=== PATIENT | female | born 1960 | race Hispanic/Latino ===

== ENCOUNTER 2017-05-22 11:48 | Outpatient (CLI) | payer BC ==
[2017-05-22 14:47] LABS: #Lymphocytes 1.2 thou/uL (1.20-3.40); #Monocytes 1.6 thou/uL (0.11-0.59); %Basophils 0.1 % (0.0-1.0); %Eosinophils 0.1 % (0.0-10.0); %Lymphocytes 6.9 % (21.0-51.0); %Monocytes 9.3 % (0.0-10.0); %Neutrophils 83.6 % (42.0-75.0); Hemoglobin 14.1 g/dL (12.0-16.0); Mean Corpuscular Hemoglobin 27.5 pg (27.0-31.0); Mean Platelet Volume 9.2 fL (7.4-10.4); Platelet Count 235 thou/uL (130-400); RBC Distribution Width 13.2 % (11.5-14.5); Red Blood Cell (RBC) Count 5.13 mill/uL (4.20-5.40); White Blood Cell (WBC) Count 16.7 thou/uL (4.8-10.8)
[2017-05-22 15:12] LABS: ALT (SGPT) 24 U/L (8-55); AST (SGOT) 16 U/L (5-34); Albumin 4.3 g/dL (3.5-5.0); Alkaline Phosphatase 108 U/L (40-150); Anion Gap 16 mmol/L (10-20); BUN (Urea Nitrogen) 10 mg/dL (9.8-20.1); Bilirubin, Total 1.3 mg/dL (0.2-1.2); Calc. Creatinine Clearance 0 mL/min (70-130); Calcium 9.8 mg/dL (7.8-10.44); Carbon Dioxide 27 mmol/L (22-29); Chloride 99 mmol/L (98-107); Estimated GFR-MDRD 85; Globulin 3.4 g/dL (2.4-3.5); Glucose 104 mg/dL (70-105); Potassium 4.1 mmol/L (3.5-5.1); Protein, Total 7.7 g/dL (6.0-8.3); Sodium 138 mmol/L (136-145)
--- NOTE | 2017-06-15 16:37 | EKG ---
Test Reason : Blood Pressure : / mmHG Vent. Rate : 097 BPM Atrial Rate : 097 BPM P-R Int : 120 ms QRS Dur : 088 ms QT Int : 348 ms P-R-T Axes : 042 060 024 degrees QTc Int : 441 ms Normal sinus rhythm Nonspecific T wave abnormality Abnormal ECG No previous ECGs available Confirmed by DR. Kike HICKS ([id number]) on 06/15/2017 4:36:49 PM Referred By: TOAN Confirmed By:DR. Kike HICKS
== END 2017-05-22 11:49 | disposition home or self-care (01) ==
LOC: LABBT 11:48
PROVIDERS: ATTEND Specialist
DX: Z01.818 Encounter for other preprocedural examination (principal); K81.9 Cholecystitis, unspecified
CPT/HCPCS: 80053; 85025; 93005; 93010

== ENCOUNTER 2017-05-23 07:25 | Day surgery (SDC) | payer BC ==
[2017-05-22 12:26] VITALS: BMI 39.8
--- NOTE | 2017-05-22 18:58 | HP ---
HISTORY OF PRESENT ILLNESS: Payton Smith is a 56-year-old female patient seen today for symptomatic ga llstones. Plan is for laparoscopic cholecystectomy. 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 This was first diagn osed in [facility]. This measured 24 x 20 x 13 cm. It is asymptomatic and plan is to leave alone, but will look at it laparoscopically during the procedure. I saw her on 07/27/2016 at which p oint she was to seek a colonoscopy due to questionable CAT scan findings of her colon. A colonoscopy and upper endoscopy were normal in July 2016 performed at [facility]. Also not ed during past CAT scans was a 2.8 x 5.6 x 16.2 cm complex mass in the liver immediately adjacent to gallbladder with fluid density seen on ultrasound and CAT scan was obtained thought to be benign. Th e possibilities of malignancy were thought possible, but unlikely. Plan is for a laparoscopic cholec ystectomy and evaluation tomorrow. Risks and benefits explained. She consents. MEDICATIONS: Davis 3-6-9 complex, aspirin 81 mg a day, losartan potassium daily. PAST MEDICAL HISTORY: Hypertension, gastroesophageal reflux disease. PAST SURGICAL HISTORY: C-sections. Known pelvic fatty tumor mass seen from left gluteus to sciatic foramen to the pelvis, asymptomatic. PHYSICAL EXAMINATION: VITAL SIGNS: Weight 225 pounds, 66 inches tall, 36 BMI, blood pressure 157/71, heart rate 100, tempe rature 97.9 degrees. LUNGS: Clear to auscultation. CARDIAC: Regular rate and rhythm without murmur or gallop. ABDOMEN: Soft, nontender. No masses, obese. EXTREMITIES: Unremarkable. ASSESSMENT: Symptomatic gallstones. PLAN: 1. Laparoscopic cholecystectomy. Risk of infection, bleeding, visceral and biliary injury explained . She consents. 2. Pelvic mass, chronic, known to be present for more than 15 years from CAT scans in the [place]. Laparoscopically visualized, but will not plan any intervention. 3. Right hepatic lobe, probably benign mass. Evaluate laparoscopically. Consider biochemical marke rs pending laparoscopic findings.
[2017-05-23] MEDS ORDERED: Ketorolac Tromethamine 30 MG/ML VIAL ONE (09:21)
[2017-05-23] MEDS ORDERED: CEFAZOLIN/Water 2 GM/20 ML SYRINGE ONE (09:21)
[2017-05-23] MEDS ORDERED: Bupivacaine/Epinephrine 0.25% 30 ML VIAL ONE (10:30)
[2017-05-23] MEDS ORDERED: Fentanyl 100 MCG/2 ML VIAL ONE (10:34)
[2017-05-23] MEDS ORDERED: Levofloxacin 500 mg/D5W 100 ml Premix Bag ONE (11:28)
--- NOTE | 2017-05-23 12:42 | OP ---
DATE OF PROCEDURE: 05/23/2017 PREOPERATIVE DIAGNOSES: Chronic cholecystitis, cholelithiasis, large fatty tumor present for more th an 20 years left buttocks and the sciatic notch pelvis. POSTOPERATIVE DIAGNOSES: Chronic cholecystitis, cholelithiasis, large fatty tumor present more than 20 years left buttocks and the sciatic notch pelvis. Hydrops of the gallbladder, purulent drainage. PROCEDURE: Laparoscopic video cholecystectomy, 19 gold ROSARIO drain, Jordan in the gallbladder bed, Endo loops cystic duct stump. SURGEON: Dr. Shan Holland FINDINGS: The patient had severe inflammation about the gallbladder. The colon and stomach had infl ammatory adherence, but it peeled off easily. Preoperative CAT scan suggested possible colon involve ment and preoperative colonoscopy was normal. CAT scan suggested a cystic mass adjacent to the gallb ladder and I think this was due to the infection of the gallbladder, liver appeared to be normal. ANESTHESIA: General anesthesia. Local 0.25% Marcaine with epinephrine, 30 mL. DRAINS: A #19 gold ROSARIO drain left in place. PROCEDURE IN DETAIL: The patient was taken to the operating room where under general anesthesia, abd omen was prepared with ChloraPrep, draped in routine fashion. Infraumbilical incision made and pneum operitoneum to 15 mmHg obtained with the Veress needle, replacing it with a 5 port. Video laparoscop e inserted. Right subxiphoid incision made and 11 port placed. Right subcostal incision made mid cl avicular anterior axillary lines and 5 ports placed. Omentum was adherent to the fundus of the gallb ladder. The duodenum, pyloric area of the stomach and colon were also in close proximity and had inf lammatory adhesions. Using careful dissection omentum was freed from the gallbladder fundus. I was able to grasp the gallbladder fundus and as I did it was very friable, it tore and drained purulent h ydrops fluid. Careful dissection freed the duodenum and colon from the gallbladder body. Gallbladde r continued to tear, but I was persistent and able to grasp it and carefully dissect it free the cyst ic duct and artery. Careful dissection revealed the cystic duct which was dissected free and it was too broad for clips, thus, 2 Endoloops were placed. Careful dissection freed the gallbladder which w as placed in the Endobag and submitted to Pathology. Good hemostasis gained with the cautery. Arist a placed. A #19 Gold ROSARIO drain placed in the gallbladder bed. It was secured with 3-0 nylon suture a nd Op-Site and Mastisol. Irrigant and pneumoperitoneum evacuated. Good hemostasis was noted after A rista placed in the liver bed. Good hemostasis assured. As sponge, needle and instrument counts wer e correct, all instruments removed and all skin incisions approximated with interrupted subdermal 4-0 Monocryl and DermaGlue applied.
[2017-05-23] MEDS ORDERED: Acetaminophen 500 MG TAB ONE (13:43)
[2017-05-23] MEDS ORDERED: Lidocaine 1% PF 5 ML VIAL ONE (14:08)
[2017-05-23] MEDS ORDERED: Propofol 200 MG/20 ML VIAL ONE (14:08)
[2017-05-23] MEDS ORDERED: Ondansetron HCl/PF 4 MG/2 ML Vial ONE (14:08)
[2017-05-23] MEDS ORDERED: Dexamethasone 20 MG/5 ML VIAL ONE (14:08)
[2017-05-23] MEDS ORDERED: Glycopyrrolate 0.2 MG/ML 5 ML SYRINGE ONE (14:09)
== END 2017-05-23 14:00 | disposition home or self-care (01) ==
LOC: SDC 07:25
PROVIDERS: ATTEND Specialist
PROC: 0FT44ZZ Resection of Gallbladder, Percutaneous Endoscopic Approach (ICD-10-PCS; principal; 2017-05-23)
DX: K80.11 Calculus of gallbladder with chronic cholecystitis with obstruction (principal); D17.1 Benign lipomatous neoplasm of skin and subcutaneous tissue of trunk; K82.1 Hydrops of gallbladder; I10 Essential (primary) hypertension; K21.9 Gastro-esophageal reflux disease without esophagitis; Z79.82 Long term (current) use of aspirin; Z79.899 Other long term (current) drug therapy; Z98.890 Other specified postprocedural states
CPT/HCPCS: 88304; J0131; J1100; J1885; J1956; J2001; J2405; J2704; J3010

== ENCOUNTER 2017-10-26 08:12 | Outpatient (CLI) | payer BC | END 2017-10-26 08:13 | disposition home or self-care (01) | LOC: BICMAMMO 08:12 | PROVIDERS: ATTEND Physician Assistant | DX: Z12.31 Encounter for screening mammogram for malignant neoplasm of breast (principal) | CPT/HCPCS: 77063; 77067 ==

== ENCOUNTER 2018-08-26 08:29 | Outpatient (CLI) | payer BC ==
--- NOTE | 2018-08-26 09:13 | ULT ---
US Gallbladder RUQ: 08/26/2018 12:00 AM CLINICAL HISTORY: Intermittent abdominal pain for 2 months. STUDY: Limited right upper quadrant ultrasound of abdomen. COMPARISON: None. FINDINGS: Liver: Size: Normal. Echogenicity: Normal. Contour: Smooth. Mass: None. A small amount of ascites is seen adjacent to the liver. Bile ducts: No intrahepatic or extrahepatic biliary dilatation. Common bile duct measures 5 mm. Gallbladder: Removed Pancreas: Head, body, and tail appear normal. Right kidney: No pelvicalyceal dilatation. Right kidney measuring 10.6 cm in length. IMPRESSION: Mild ascites; otherwise unremarkable exam
== END 2018-08-26 08:30 | disposition home or self-care (01) ==
LOC: ULT 08:29
PROVIDERS: ATTEND Physician Assistant
DX: R10.11 Right upper quadrant pain (principal); R18.8 Other ascites
CPT/HCPCS: 76705

== ENCOUNTER 2018-09-11 08:11 | Outpatient (CLI) | payer BC ==
--- NOTE | 2018-09-11 10:17 | CT ---
CT ABDOMEN AND PELVIS WITH IV CONTRAST: Date: 09/11/18 HISTORY: Right upper quadrant pain and ascites. FINDINGS: Comparison made with exam of 07/26/16. The lung bases are unremarkable. There is a small amount of free fluid in the abdomen and pelvis, con sistent with mild ascites. There is soft tissue nodularity in the omentum of the left hemiabdomen jessica picious for omental/peritoneal metastasis. No free air is seen in the abdomen or pelvis. The patient is post cholecystectomy. The 15 mm peripherally calcified splenic artery aneurysm is stable. There is no evidence of aneurysmal dilatation of the abdominal aorta. The complex cystic mass noted in the liver on the previous study has resolved in the interim. No hepa tic mass is noted on the current exam. The spleen, pancreas, adrenal glands, and kidneys are normal. No lymphadenopathy is identified. Uterus is present with a small, 1.0 cm, low density lesion, which may represent a fibroid. There is a 3.5 cm complex cystic mass in the left adnexa, and a 1.8 cm cystic mass in the right adnexa. There i s a tiny calcific density in the cystic area in the right adnexa. It cannot be said with certainty if this is due to an adnexal mass or contained acute appendicitis. Due to the absence of oral contrast, bowel contents, including the appendix, cannot be satisfactorily evaluated on this study. The large fat-containing mass involving the left gluteal musculature and extending into the pelvis fa tty foramen is unchanged. A few scattered punctate calcifications within the mass and a few tiny line ar septations are redemonstrated. This is most likely a lipoma. IMPRESSION: 1. Ascites. 2. Complex 3.5 cm left adnexal mass, likely ovarian. 3. 1.8 cm cystic mass in the right adnexal region may either be due to an ovarian pathology or a seq uelae of acute appendicitis. Clinical, surgical, and gynecologic consultation is recommended. 4. Probable omental metastases. Discussed over the telephone with Uma Khoury NP, at 0937 hours. CODE CR. POS: TPC
[2018-09-11] MEDS ORDERED: ISOVUE-370 76%-LOCM 1 ML ONE (14:37)
== END 2018-09-11 08:12 | disposition home or self-care (01) ==
LOC: BICCT 08:11
PROVIDERS: ATTEND Physician Assistant
DX: R18.8 Other ascites (principal); N85.8 Other specified noninflammatory disorders of uterus
CPT/HCPCS: 36415; 74177; 80053; 82565; 85025; 86301; 86304; Q9966

== ENCOUNTER 2018-09-26 13:00 | Outpatient (CLI) | payer BC ==
--- NOTE | 2018-09-26 14:27 | MRI ---
EXAM: MRI of the abdomen without and with contrast COMPARISON: CT abdomen/pelvis 09/11/2018 HISTORY: Pancreatic cancer TECHNIQUE: Multiplanar multi sequence MR images were taken of the abdomen without and with IV contras t. An MRCP was performed. FINDINGS: This exam is limited secondary to motion artifact. Liver: No focal liver lesions. There is moderate intrahepatic ductal dilatation. Normal signal withou t dropout on out of phase images. Gallbladder: Removed Common bile duct: Normal caliber without filling defects. The intrahepatic ductal dilatation mentione d above abruptly tapers to normal caliber in the region of the cain hepatis. No obvious enhancing mass is seen in this region but evaluation is slightly limited secondary to artifact from multiple nolen rgical clips. Adrenal glands: Unremarkable. Kidneys: No hydronephrosis or focal renal lesions. Spleen: Unremarkable. Pancreas: Unremarkable. Retroperitoneum: No enlarged lymph nodes Bones: No marrow signal abnormality. The abnormal appearance of the mesentery seen on CT cannot be appreciated on this examination as ther e is significant motion of the bowel. IMPRESSION: 1. Intrahepatic ductal dilatation abruptly tapers in the cain hepatis without obvious mass identifie d. 2. The findings on CT concerning for omental caking cannot be appreciated on this exam likely seconda ry to motion.
== END 2018-09-26 13:01 | disposition home or self-care (01) ==
LOC: MRI 13:00
PROVIDERS: ATTEND Internal Medicine Hematology & Oncology
DX: C25.9 Malignant neoplasm of pancreas, unspecified (principal)
CPT/HCPCS: 74183

== ENCOUNTER 2018-09-27 08:18 | Outpatient (CLI) | payer BC ==
--- NOTE | 2018-09-27 14:40 | PET ---
PET CT: HISTORY: Pancreatic cancer for initial staging. TECHNIQUE: PET scanning with CT attenuation correction was performed from the base of the brain through the prox imal thighs following the intravenous administration of 12.3 mCi of [id number]. Biopsy w as performed on 09/20/2018. COMPARISON: None. CORRELATION: CT abdomen and pelvis of 09/11/2018 and MRI abdomen of 09/26/2018. FINDINGS: No shira hypermetabolism is seen in the neck, chest, abdomen, or pelvis. No hypermetabolic pulmonary nodules, liver, adrenal, or skeletal lesions are seen. There is increased FDG localization in the peritoneal/omental masses with a maximum SUV of 7.5. The right-sided pelvic mass noted on the CT scan demonstrates increased FDG localization with an SUV of 1 1. No abnormal FDG localization is seen in the left pelvic mass. There is physiologic activity in the GI and tracks and the visualized portions of the brain. The CT scan used for attenuation correction demonstrates mild ascites. No pleural or pericardial eff usions are seen. No abnormal FDG localization is seen in the pancreas. IMPRESSION: 1. Peritoneal carcinomatosis. 2. Hypermetabolic right pelvic mass, suspicious for malignancy. POS: WERO
== END 2018-09-27 08:19 | disposition home or self-care (01) ==
LOC: PET 08:18
PROVIDERS: ATTEND Internal Medicine Hematology & Oncology
DX: C25.9 Malignant neoplasm of pancreas, unspecified (principal); C78.6 Secondary malignant neoplasm of retroperitoneum and peritoneum; R19.00 Intra-abdominal and pelvic swelling, mass and lump, unspecified site
CPT/HCPCS: 78815; 80053; A9552

== ENCOUNTER 2018-10-02 06:05 | Day surgery (SDC) | payer BC ==
[2018-10-01 16:47] VITALS: BMI 30.9
[2018-10-02] MEDS ORDERED: Fentanyl 100 MCG/2 ML VIAL ONE (06:50)
[2018-10-02] MEDS ORDERED: Midazolam HCl 2 mg/2 ml Vial ONE (06:50)
[2018-10-02] MEDS ORDERED: Bupivacaine HCl 0.5%/Epinephrine 1:200,000/PF 30 ml Vial ONE (06:53)
[2018-10-02] MEDS ORDERED: Lidocaine 2% PF 5 ML VIAL ONE (06:53)
[2018-10-02] MEDS ORDERED: Propofol 1,000 MG/100 ML VIAL IV ONE (06:55)
--- NOTE | 2018-10-02 08:14 | RAD ---
EXAM: CHEST ONE VIEW HISTORY: Post Mediport placement. COMPARISON: None FINDINGS: A right subclavian Mediport catheter is noted in place. However, there is significant flattening of t he Mediport catheter at the junction of the anterior first rib and the clavicle. The tip of the Mediport catheter overlies the distal SVC. No pneumothorax is seen. The cardiac silhouette and pulmonary vasculature are within normal limits The lungs are clear. The os seous structures are intact. IMPRESSION: 1.] Right subclavian Mediport catheter noted in place without evidence of pneumothorax. There is sign ificant flattening involving the Mediport catheter at the junction of the anterior first rib and clavicle. 2. Findings were discussed with Dr. Holland on 10/02/2018 at 0811 hours.
--- NOTE | 2018-10-02 12:13 | HP ---
HISTORY OF PRESENT ILLNESS: Payton Smith is a 58-year-old female, who in 2018 I performed a laparoscopic cholecystectomy. She now presents with metastatic pancreatic cancer and jaundice. She has been seen by Uma Khoury PA-C, referred to Dr. Maurilio Lobo, Dr. Vasquez, and Dr. Danica Garland. The patient is awaiting a call from Dr. Hickey in [place] for placement of biliary stent to relieve her jaundice and biliary obstruction. I have been asked to see her by Dr. Vasquez regarding MediPort placement. PAST SURGICAL HISTORY: and repeat in 1984 and 1989, laparoscopic cholecystectomy in May 2017, and recent laparoscopy by Dr. Danica Garland for biopsy of ovarian mass, consider pancreatic metastatic cancer. On 08/26/2018, ultrasound revealed mild ascites, bile ducts normal, pancreas normal, and right kidney normal. CAT scan of the abdomen and pelvis on 09/11/2018 revealed absence of hepatic lesions. A previous seen liver mass in 07/2016 had resolved. Ascites and omental thickening were noted. A 3.5 cm complex left ovarian mass and a 1.8 cm right ovarian cystic lesion. No oral contrast was used. Thin lipoma in left gluteus. Bilirubin was 3.8 on 08/16/2018. Recent laparoscopy by Dr. Danica Garland, pancreas seen to be normal on 08/26/2018. She has a large fat containing mass in the left gluteal and muscle reside into the pelvis foramen. Unchanged from previous studies and noted in prior study in [place]. PHYSICAL EXAMINATION: VITAL SIGNS: Weight 191 pounds, height 66 inches, BMI 30, blood pressure 96/54, heart rate 100, and temperature 97.7 degrees. SKIN: Jaundiced. EYES: Sclerae are icteric. LUNGS: Clear to auscultation. CARDIAC: Regular rate and rhythm. No murmur or gallop. ABDOMEN: Soft and nontender. Well-healed laparoscopy scar, supraumbilical. EXTREMITIES: Unremarkable. ASSESSMENT AND PLAN: Metastatic cancer, suspect pancreatic although ovarian mass was noted. She is status post laparoscopy by Dr. Danica Garland. Plan MediPort placement. She is awaiting Dr. Hickey's visit for biliary stenting. She has seen Dr. Maurilio Lobo. She understands the risks and benefits of MediPort placement and consents. Questions answered. Job ID: [id number]
--- NOTE | 2018-10-02 14:38 | OP ---
DATE OF PROCEDURE: 10/02/2018 PREOPERATIVE DIAGNOSES: Metastatic pancreatic cancer, obstructive jaundice, and needle antineoplastic chemotherapy access. POSTOPERATIVE DIAGNOSES: Metastatic pancreatic cancer, obstructive jaundice, and needle antineoplastic chemotherapy access. PROCEDURE PERFORMED: Right subclavian vein MediPort, low-profile PowerPort. ANESTHESIA: Intravenous sedation, local 0.5% Marcaine with epinephrine 30 mL mixed with 2% Xylocaine 10 mL. FLUOROSCOPY USED: Less than 15 seconds. DESCRIPTION OF PROCEDURE: The patient was taken to the operating room, where under intravenous sedation, neck and chest were prepped with ChloraPrep, draped in routine fashion. Local anesthetic mixture was infiltrated into the skin and subcutaneous tissue about the operative site. An infraclavicular approach was used for the right subclavian vein access with a trocar catheter, J-wire threaded, trocar catheter removed. Skin site was incised sharply, carried down through skin and subcutaneous tissue creating a pocket for the MediPort. Dilator and Peel-Away sheath were placed over the J-wire in the superior vena cava, and dilator and J-wire were removed. Catheter was placed through the Peel-Away sheath. Peel-Away sheath was removed. Fluoroscopically, the catheter tip was placed in optimal position, and catheter was tailored to length and connected to the MediPort. MediPort was placed in the subcutaneous pocket and secured with 2 interrupted sutures of 3-0 Prolene. Subcutaneous tissue was approximated with 3-0 Monocryl, skin with subdermal 4-0 Monocryl, and [place] glue applied. Final fluoroscopic images revealed good line placement. The patient tolerated the procedure well. Dermabond applied. Merrill needle accessed the MediPort, obtained good return of venous blood and heparinized saline solution flushed the catheter and port. Job ID: [id number]
[2018-10-02] MEDS ORDERED: PROPOFOL 200 MG/20 ML VIAL ONE (15:49)
[2018-10-02] MEDS ORDERED: ePHEDrine 50 MG/ML VIAL ONE (15:49)
[2018-10-02] MEDS ORDERED: PHENYLEPHRINE-NS 100 MCG/ML 10 ML SYRINGE ONE (15:49)
== END 2018-10-02 09:20 | disposition home or self-care (01) ==
LOC: SDC 06:05
PROVIDERS: ATTEND Specialist
PROC: 0JH63WZ Insertion of Totally Implantable Vascular Access Device into Chest Subcutaneous Tissue and Fascia, Percutaneous Approach (ICD-10-PCS; principal; 2018-10-02)
DX: C78.89 Secondary malignant neoplasm of other digestive organs (principal); K83.1 Obstruction of bile duct; C80.1 Malignant (primary) neoplasm, unspecified; I10 Essential (primary) hypertension; K21.9 Gastro-esophageal reflux disease without esophagitis; Z79.899 Other long term (current) drug therapy
CPT/HCPCS: 71045; C1788; J0670; J0690; J1642; J2001; J2250; J2704; J3010; J3490

== ENCOUNTER 2018-11-11 13:19 | Inpatient (IN) | payer BC ==
[2018-11-11 14:05] LABS: Hemoglobin 10.7 g/dL (12.0-16.0); Mean Corpuscular HGB CONC 32.4 g/dL (32.0-36.0); Mean Corpuscular Volume 92.7 fL (78.0-98.0); Mean Platelet Volume 8.6 fL (7.4-10.4); Platelet Count 308 thou/uL (130-400); RBC Distribution Width 15.6 % (11.5-14.5); Red Blood Cell (RBC) Count 3.57 mill/uL (4.20-5.40); White Blood Cell (WBC) Count 22.2 thou/uL (4.8-10.8)
[2018-11-11 14:23] LABS: Anisocytosis SLIGHT = 6-15 cells (100X) (0-5/hpf); Band 2 % (5-11); Basophilic Stippling SLIGHT = 1-2 cells (100X) (None Seen); Eosinophils 1 % (0-10); Lymphocytes 8 % (21-51); MDiff Complete? YES; Monocytes 3 % (0-10); Neutrophil 86 % (42-75); Platelet Morphology Comment Appears Adequate; Polychromasia MODERATE = 3-4 cells (100X) (0-2/hpf); Spherocytes SLIGHT = 1-5 cells (100X) (None Seen)
[2018-11-11 14:27] LABS: ALT (SGPT) 49 U/L (8-55); AST (SGOT) 36 U/L (5-34); Albumin 4.1 g/dL (3.5-5.0); Alkaline Phosphatase 263 U/L (40-150); Anion Gap 20 mmol/L (10-20); BUN (Urea Nitrogen) 54 mg/dL (9.8-20.1); Bilirubin, Total 2.9 mg/dL (0.2-1.2); Calc. Creatinine Clearance 0 mL/min (70-130); Calcium 10.3 mg/dL (7.8-10.44); Carbon Dioxide 28 mmol/L (22-29); Chloride 86 mmol/L (98-107); Estimated GFR-MDRD 16; Globulin 4.5 g/dL (2.4-3.5); Glucose 184 mg/dL (70-105); Protein, Total 8.6 g/dL (6.0-8.3); Sodium 130 mmol/L (136-145)
--- NOTE | 2018-11-11 14:40 | RAD ---
FRONTAL VIEW CHEST: Date: 11/11/18 COMPARISON: 10/02/18. INDICATION: Hypertension, dialysis patient with history of pancreatic cancer reported. FINDINGS: Right-sided Port-A-Cath is again seen. There has been interval placement of a left side tunnel vascul ar catheter. No lobar consolidation, effusion, or discrete pneumothorax. Cardiomediastinal silhouette is stable in size. IMPRESSION: No focal consolidation. POS: SILK
[2018-11-11] MEDS ORDERED: Acetaminophen 325 MG TAB PO PRN (18:50)
[2018-11-11] MEDS ORDERED: Ondansetron PF 4 MG/2 ML Vial IVP PRN (19:31)
[2018-11-11] MEDS: Sodium Chloride 0.9% 1,000 ML IV SCH (23:15)
[2018-11-11] MEDS: Famotidine/PF 20 mg/2ml Vial SLOW IVP SCH (23:16)
[2018-11-11] MEDS: Meropenem 500 MG in Sodium Chloride 0.9% 100 ML IVPB SCH (23:17)
[2018-11-11] MEDS: Heparin 5,000 UNITS/ML VIAL SC SCH (23:17)
[2018-11-12 00:04] VITALS: BMI 25.9
[2018-11-12] MEDS ORDERED: HYDROcodone/Acetaminophen 5/325 mg Tablet PO PRN (01:31)
--- NOTE | 2018-11-12 01:44 | HP ---
CHIEF COMPLAINT: Presyncope. HISTORY OF PRESENT ILLNESS: The patient is a 58-year-old female with a history of hypertension, who presents to the hospital with near syncopal episode x1. Patient's history is mostly obtained from family, especially her who is at the bedside. The patient's states that she recently got diagnosed with pancreatic cancer with significant metastatic lesions all the way up to her ovaries. Initially, she was found to have lesions on her ovaries, went to a doctor in [place], Dr. Garland, who stated that most likely this is not ovarian in origin. The patient also at that time had significant jaundice and at this time, she was found to have pancreatic cancer. The patient's family stated that the patient also had seen Dr. Vasquez and also Dr. Lobo for GI issues. Apparently, due to the patient's elevated bilirubin, she underwent a procedure, I am guessing it is most likely MRCP with Dr. Lobo. Apparently, there was supposed to be stenting, however, the family stated that due to the complication of her anatomy and also complications of the patient's underlying disease, she was referred to Dr. Hickey in [place] for placing a biliary stent for the biliary obstruction and jaundice. However, when she got there to get her stent in, she was found to be very hypotensive and at that time, she was transferred to [facility] for further evaluation. The patient and daughter stated that the patient at that time was found to have an upper GI bleed and underwent an EGD. The patient at this time was put on a PPI. However, when she was getting hemodynamically stable, her creatinine started to worsen. The patient then ended up on dialysis. The patient was in the ICU for about 4 days according to the family. The patient then was discharged home. She came home on October 24. The patient's family states that since her discharge from [facility] she has been doing well. She is not eating very much, however, has been in good spirits and has been getting up with assistance to do minimal activities. However, on Sunday, she was started on a new medication which is nifedipine and after taking her medications on Sunday, , Sunday, and Sunday she has been having worsening generalized weakness, lightheadedness, dizziness, and nauseated. Family noticed that the patient is now not even able to stand on her own, which she was able to do before with some assistance or even get out of bed. She denies any fevers, however, gets cold very often. Denies any diarrhea. Has been having bowel movements. Currently is not nauseated. However, she has not been eating very much per family. In the ER, she did have orthostatics which was significantly positive. Her systolic dropped from 165 lying down, to 130 sitting up, to 111 standing up, and also she had reflex tachycardia. She also dropped her oxygen saturations down and almost had a syncopal episode while she was standing. PAST MEDICAL HISTORY: She has a history of hypertension. PAST SURGICAL HISTORY: She has had a cholecystectomy and a . REVIEW OF SYSTEMS: All negative except for the ones mentioned above in the HPI. ALLERGIES: SHE HAS NO KNOWN DRUG ALLERGIES. MEDICATIONS: She takes; 1. Nifedipine 30 mg daily. 2. Protonix 40 mg b.i.d. 3. Megestrol daily. FAMILY HISTORY: History of heart disease and strokes. SOCIAL HISTORY: She denies any alcohol use, drug use, or smoking history. She is a full code. Lives with her family. LABORATORY RESULTS: As of the following; WBC 22.2, hemoglobin of 10.7, hematocrit of 33.1, platelets of 308. Her chemistry shows a sodium of 130, potassium of 4.0, BUN of 54, creatinine of 2.93. Her bilirubin is 2.9. Her AST is 36, ALT is 49, alkaline phosphatase is 263. She did have a chest x-ray which did not indicate any acute abnormalities. ASSESSMENT AND PLAN: The patient is a very pleasant 58-year-old female who presents to the hospital with complaints of generalized weakness. 1. Presyncope , most likely secondary to possible dehydration. Her orthostatics were definitely positive. At this time, I would not treat her hypertension while she is lying down since this most likely is attributing to her symptoms. What I believe as happening is when her blood pressure is high lying down, when she takes her medications and when she gets up, she is becoming hypotensive, therefore symptomatic. She also has not been eating or drinking very much per family. I will hold off on any of the blood pressure medications at this time and I will also check an echocardiogram on her. She also became significantly hypoxic. Her H and H are stable at 10. However, this could be mild dehydration related and maybe once we hydrate her, she might drop her H and H and requiring a blood transfusion, which could explain her shortness of breath and her hypoxia. However, she has a pancreatic cancer which predisposes her to having prone to deep venous thrombosis and pulmonary embolism. Given in the light of a recent upper gastrointestinal bleed, I did discuss this with the family that if she even had pulmonary embolism or deep venous thrombosis, the only other option would be an IVC filter. I will check lower extremity venous Dopplers. I will hold off on any V/Q scanning. I will discuss this with the suede brusher since we will be unable to do a CTA given her kidneys, which are just now recovering from most likely secondary to prerenal or acute tubular necrosis. Most likely, I would do a V/Q scan on her probably tomorrow. 2. Leukocytosis. I believe this is possibly reactive. However, given her generalized weakness, this could be an underlying infectious etiology. I will check a UA on her and I will get some records from [facility] since her family did state that she did have leukocytosis at [facility] also. I will also order blood cultures and her chest x-ray has been negative. 3. Acute kidney injury, new diagnosis. She had some intermittent dialysis. I will consult Nephrology. Her creatinine again is 2.93. Again, I do not know what her baseline creatinine at [facility] was; however, I will definitely get records from there. 4. Malnutrition. I believe this patient has moderate calorie malnutrition. I will continue her megestrol also I will put on a regular diet, even though she is a renal patient and has hypertension. The patient is not eating very much. I need her to eat. So, I will put her on a regular diet and I will add some Nepro or some MightyShakes if she is able to tolerate them. 5. Deep venous thrombosis prophylaxis. I will put the patient on heparin subcu. Job ID: [id number]
[2018-11-12] MEDS: HYDROcodone/Acetaminophen 5/325 mg Tablet PO PRN ×3 (01:57→18:59)
[2018-11-12 05:22] LABS: #Eosinphils 0.1 thou/uL (0.0-0.7); #Lymphocytes 1.3 thou/uL (1.20-3.40); #Monocytes 1.1 thou/uL (0.11-0.59); #Neutrophils 12.7 thou/uL (1.40-6.50); %Basophils 0.1 % (0.0-1.0); %Eosinophils 0.8 % (0.0-10.0); %Lymphocytes 8.6 % (21.0-51.0); %Monocytes 7.5 % (0.0-10.0); %Neutrophils 83.1 % (42.0-75.0); Hemoglobin 9.5 g/dL (12.0-16.0); Mean Corpuscular HGB CONC 32.3 g/dL (32.0-36.0); Mean Platelet Volume 8.7 fL (7.4-10.4); Platelet Count 248 thou/uL (130-400); RBC Distribution Width 15.4 % (11.5-14.5); Red Blood Cell (RBC) Count 3.17 mill/uL (4.20-5.40); White Blood Cell (WBC) Count 15.2 thou/uL (4.8-10.8)
[2018-11-12 05:38] LABS: ALT (SGPT) 37 U/L (8-55); AST (SGOT) 25 U/L (5-34); Albumin 3.6 g/dL (3.5-5.0); Alkaline Phosphatase 198 U/L (40-150); Anion Gap 20 mmol/L (10-20); BUN (Urea Nitrogen) 55 mg/dL (9.8-20.1); Bilirubin, Total 2.3 mg/dL (0.2-1.2); Calc. Creatinine Clearance 25 mL/min (70-130); Calcium 9.4 mg/dL (7.8-10.44); Carbon Dioxide 27 mmol/L (22-29); Chloride 91 mmol/L (98-107); Estimated GFR-MDRD 18; Globulin 3.7 g/dL (2.4-3.5); Glucose 149 mg/dL (70-105); Potassium 3.7 mmol/L (3.5-5.1); Protein, Total 7.3 g/dL (6.0-8.3); Sodium 134 mmol/L (136-145)
[2018-11-12 05:52] LABS: Bilirubin Small (Negative); Blood, Urine Negative (Negative); Clarity CLOUDY (Clear); Glucose, Urine (Dipstick) Negative (Negative); Leukocyte Moderate (Negative); Nitrite Negative (Negative); Protein, Urine (Dipstick) 100 mg/dL (Neg-Trace); Urobilinogen 0.2 mg/dL (0.2-1.0)
[2018-11-12 05:55] LABS: Bacteria/HPF None Seen HPF (None Seen); Pathc Cast-AUWi Flag 1.22 (0-2.49); Squamous Epithelial 0-3 HPF (0-3); WBC/HPF 21-50 HPF (0-3)
[2018-11-12 05:57] LABS: Yeast-AUWi Flag 105.8 (0-25.0)
[2018-11-12 06:05] LABS: Hyaline Casts/LPF 0-3 HYALINE CAST LPF (0-3 Hyaline); RBC/HPF 0-3 HPF (0-3); Trichomonas/HPF None Seen HPF (None Seen); Yeast-All Forms None Seen HPF (None Seen)
[2018-11-12 06:06] LABS: Urine Culture Reflex Yes Yes
--- NOTE | 2018-11-12 08:00 | ULT ---
ULTRASOUND DOPPLER DUPLEX VENOUS BILATERAL LOWER EXTREMITIES: DATE: 11/12/2018 HISTORY: Lower extremity edema bilateral TECHNIQUE: Grayscale, color-flow, and spectral analysis, of major veins of bilateral lower extremities. FINDINGS: There is demonstration of blood flow with normal compressibility, of the bilateral common femoral, pr ofunda femoral, greater saphenous, femoral, popliteal, and posterior tibial, veins. IMPRESSION: Negative. No deep venous thrombosis of bilateral lower extremities.
[2018-11-12] MEDS ORDERED: Prevnar 13-Val Conj/PF 0.5 ML SYRINGE IM ONE (09:00)
[2018-11-12] MEDS: Heparin 5,000 UNITS/ML VIAL SC SCH ×3 (09:19→21:30)
--- NOTE | 2018-11-12 10:29 | CON ---
DATE OF CONSULTATION: HISTORY OF PRESENT ILLNESS: Ms. Smith is a 58-year-old female, who was admitted for near syncopal episode. The patient's blood pressure in supine position has been running in the 170s. She was started nifedipine recently. According to the patient, she was started with that, she has been feeling dizzy. On checking her blood pressure - standing was showing that she is orthostatic. For that reason, nifedipine will be stopped temporarily. This patient also has recent diagnosis of pancreatic/ovarian carcinoma with metastasis. She is being followed up by her termite technician. She also developed prolonged acute renal failure secondary to acute tubular necrosis. I do not see any evidence per se of complete renal recovery. We will continue current maintenance hemodialysis. We are following her up for her dialysis sessions. This morning, she is feeling better. REVIEW OF SYSTEMS: No chest pain or shortness of breath. Positive for near syncopal episode. No nausea. No vomiting. Decreased appetite. Decreased energy level. Positive for abdominal fullness. No leg edema. No gross hematuria. No dysuria. No urinary frequency. No productive cough. No fever or chills. No headache. MEDICATIONS: Home medications included; 1. Nifedipine 30 mg once a day. 2. Protonix 40 mg tablet once a day. 3. Multivitamin daily. 4. Megace 400 mg daily. 5. one tablet q.6 p.r.n. Hospital medications include; 1. Meropenem 500 mg IV b.i.d. 2. Protonix 40 mg tablet p.o. b.i.d. 3. Heparin 5000 units subcu t.i.d. PAST MEDICAL HISTORY: History of pancreatic cancer history of jaundice, hypertension, status post GI bleed. PAST SURGICAL HISTORY: Status post upper GI endoscopy, status post exploratory laparotomy, status post section, status post biopsy of ovarian mass, status post bilateral stent placement, status post MediPort placement, status post tunneled dialysis catheter placement. SOCIAL HISTORY: The patient is , 2 children. Used to work at the [employer]. Lives in [place]. No smoking. No alcohol intake. No IV drug abuse. Status post blood transfusion. Education, high school. ALLERGIES: NO KNOWN DRUG ALLERGIES. TRAUMA: None. IMMUNIZATION: Up-to-date. HOSPITALIZATIONS: Please see past medical history. FAMILY HISTORY: No family history of ESRD. PHYSICAL EXAMINATION: VITAL SIGNS: Blood pressure 168/81, heart rate 86, respiratory rate 18, temperature 98.2, pulse ox 100%. GENERAL: Noted to be awake, comfortable, not in overt distress. SKIN: Adequate turgor. HEENT: Pinkish conjunctivae. Anicteric sclerae. NECK: No neck mass. No carotid bruits. No JVD. CHEST: No deformities. LUNGS: Clear breath sounds. HEART: Normal sinus rhythm. No murmur. No gallops or rubs. ABDOMEN: Globular, soft, nontender. No masses. EXTREMITIES: No edema. No deformities. NEUROLOGIC: Awake, oriented to 3 spheres. Moving all extremities. No tremors or asterixis. No ataxia. LABORATORY DATA: Laboratories of November 12, 2018; sodium 134, potassium 3.7, chloride 91, carbon dioxide 27, BUN 55, creatinine 2.76, GFR 18 mL/minute, glucose 149, calcium 9.4, AST 25, ALT 37, albumin is 3.6. On November 11, 2018; BUN 54, creatinine 2.93. White count 15.2, hemoglobin 9.5. IMAGING STUDIES: Chest x-ray of November 11, 2018, no CHF. ASSESSMENT AND PLAN: 1. Acute kidney injury - prolonged ATN. No evidence of renal recovery. However, we will monitor renal function daily to see if I could get her off dialysis. Her GFR is still significantly impaired. She is not in volume overload. For this reason, we will not be doing any emergent dialysis with her today. I have rescheduled her for regular Sunday, Sunday, and Sunday hemodialysis. 2. Near syncopal episode. Agree to hold off blood pressure medication. 3. Overall prognosis remains guarded. Oncology is following up for her pancreatic tumor. Job ID: [id number]
[2018-11-12] MEDS: Meropenem 500 MG in Sodium Chloride 0.9% 100 ML IVPB SCH ×2 (11:08→21:29)
--- NOTE | 2018-11-12 16:36 | PDOC.PN ---
- Subjective Encounter Start Date: 11/12/18 Encounter Start Time: 10:15 Subjective: pt up in bed feels much better - Objective Resuscitation Status - Order Detail: 11/11/18 18:50 Resuscitation Status Routine Resuscitation Status: FULL: Full Resuscitation Vital Signs & Weight: Vital Signs (12 hours) Temp Pulse Resp BP Pulse Ox 11/12/18 16:00 97.8 F 93 19 158/79 H 100 11/12/18 11:10 98.3 F 96 18 165/80 H 100 11/12/18 07:18 98.2 F 86 18 168/81 H 100 Weight Admit Weight 160 lb 12.8 oz Weight 160 lb 12.8 oz I&O: 11/11/18 11/12/18 11/13/18 06:59 06:59 06:59 Intake Total 240 Output Total 300 Balance -60 Result Diagrams: 11/12/18 04:43 11/12/18 04:43 Phys Exam - Physical Examination Neck: no nodes, no JVD, supple, full ROM Respiratory: no wheezing, no rales, no rhonchi, wheezing present, clear to auscultation bilateral Cardiovascular: RRR, no significant murmur, no rub, gallop, irregular Gastrointestinal: soft, non-tender, no distention, positive bowel sounds Dx/Plan (1) Pre-syncope Status: Acute (2) Generalized weakness Code(s): R53.1 - WEAKNESS Status: Acute (3) Pancreatic cancer Status: Acute (4) CKD (chronic kidney disease) stage 4, GFR 15-29 ml/min Code(s): N18.4 - CHRONIC KIDNEY DISEASE, STAGE 4 (SEVERE) Status: Acute - Plan will continue to hydrate, pt feels well and is eating -: will continue current abx until urine cx is back. -: PT to see pt. she is eating * . Review of Systems - Review of Systems Respiratory: negative: Cough, Dry, Shortness of Breath, Hemoptysis, SOB with Excertion, Pleuritic Pain, Sputum, Wheezing Cardiovascular: negative: chest pain, palpitations, orthopnea, paroxysmal nocturnal dyspnea, edema, light headedness, other Gastrointestinal: negative: Nausea, Vomiting, Abdominal Pain, Diarrhea, Constipation, Melena, Hematochezia, Other - Medications/Allergies Allergies/Adverse Reactions: Allergies Allergy/AdvReac Type Severity Reaction Status Date / Time No Known Allergies Allergy Verified 11/11/18 21:30 Medications: Current Medications Acetaminophen (Tylenol) 650 mg PO Q4H PRN PRN Reason: Headache/Fever/Mild Pain (1-3) Hydrocodone Bitart/Acetaminophen ([place] 5/325) 1 tab PO Q6H PRN PRN Reason: Moderate Pain (4-6) Last Admin: 11/12/18 10:17 Dose: 1 tab Hydrocodone Bitart/Acetaminophen ([place] 5/325) 2 tab PO Q4H PRN PRN Reason: Moderate to Severe Pain (6-10) Famotidine (Pepcid) 20 mg SLOW IVP QPM [facility] Last Admin: 11/11/18 23:16 Dose: 20 mg Heparin Sodium (Porcine) (Heparin) 5,000 units SC TID [facility] Last Admin: 11/12/18 16:18 Dose: 5,000 units Meropenem 500 mg/ Sodium (Chloride) 100 mls @ 200 mls/hr IVPB BID [facility] Last Admin: 11/12/18 11:08 Dose: 100 mls Sodium Chloride (Normal Saline 0.9%) 1,000 mls @ 50 mls/hr IV .Q20H [facility] Last Admin: 11/11/18 23:15 Dose: 1,000 mls Iron/Minerals/Multivitamins (Theragran M) 1 tab PO DAILY [facility] Megestrol Acetate (Megace) 400 mg PO DAILY [facility] Ondansetron HCl (Zofran) 4 mg IVP Q6H PRN PRN Reason: Nausea/Vomiting Pantoprazole Sodium (Protonix) 40 mg PO BID [facility] Last Admin: 11/12/18 09:19 Dose: 40 mg Sodium Chloride (Flush - Normal Saline) 10 ml IVF Q12HR [facility] Last Admin: 11/12/18 09:19 Dose: 10 ml Sodium Chloride (Flush - Normal Saline) 10 ml IVF PRN PRN PRN Reason: Saline Flush
[2018-11-12] MEDS: Sodium Chloride 0.9% 1,000 ML IV SCH (18:54)
[2018-11-12] MEDS: Famotidine/PF 20 mg/2ml Vial SLOW IVP SCH (21:23)
[2018-11-13 05:48] LABS: #Eosinphils 0.2 thou/uL (0.0-0.7); #Lymphocytes 1.3 thou/uL (1.20-3.40); #Monocytes 1.2 thou/uL (0.11-0.59); #Neutrophils 11.5 thou/uL (1.40-6.50); %Basophils 0.3 % (0.0-1.0); %Eosinophils 1.4 % (0.0-10.0); %Lymphocytes 8.8 % (21.0-51.0); %Monocytes 8.6 % (0.0-10.0); Hemoglobin 9.4 g/dL (12.0-16.0); Mean Corpuscular HGB CONC 31.6 g/dL (32.0-36.0); Mean Corpuscular Hemoglobin 29.6 pg (27.0-31.0); Mean Corpuscular Volume 93.5 fL (78.0-98.0); Mean Platelet Volume 8.6 fL (7.4-10.4); Platelet Count 268 thou/uL (130-400); Red Blood Cell (RBC) Count 3.16 mill/uL (4.20-5.40); White Blood Cell (WBC) Count 14.2 thou/uL (4.8-10.8)
[2018-11-13 06:09] LABS: Anion Gap 14 mmol/L (10-20); BUN (Urea Nitrogen) 50 mg/dL (9.8-20.1); Calc. Creatinine Clearance 33 mL/min (70-130); Calcium 8.7 mg/dL (7.8-10.44); Carbon Dioxide 28 mmol/L (22-29); Chloride 94 mmol/L (98-107); Estimated GFR-MDRD 22; Glucose 128 mg/dL (70-105); Sodium 133 mmol/L (136-145)
[2018-11-13] MEDS: Megestrol Acetate 800 MG/20 ML UDCUP PO SCH (09:13)
[2018-11-13] MEDS: Heparin 5,000 UNITS/ML VIAL SC SCH ×3 (09:15→21:17)
[2018-11-13] MEDS: Meropenem 500 MG in Sodium Chloride 0.9% 100 ML IVPB SCH ×2 (09:23→21:18)
[2018-11-13] MEDS: Multivitamin W/ Minerals 1 TAB PO SCH (09:24)
--- NOTE | 2018-11-13 09:50 | PRG ---
DATE OF SERVICE: 11/13/2018 SUBJECTIVE: Ms. Smith is a 58-year-old white female, who was admitted for near syncopal episode. She was found to be having orthostatic hypotension, nifedipine has been discontinued. We are following up this patient for maintenance hemodialysis. She feels better this morning. Voices no new complaints. OBJECTIVE: VITAL SIGNS: Blood pressure is 165/82, heart rate 88, respiratory rate 18, temperature 98.4, and pulse ox 100%. GENERAL: Awake, alert, and comfortable, not in distress. SKIN: Adequate turgor. HEENT: She has a slightly pale conjunctivae. Anicteric sclerae. NECK: No neck mass. No carotid bruits. No JVD. CHEST: No deformities. LUNGS: Clear breath sounds. No wheezing. No crackles. HEART: Normal sinus rhythm. No murmurs. No gallops. No rubs. ABDOMEN: Globular, soft, and nontender. No masses. EXTREMITIES: No edema. No deformities. MEDICATIONS: Medications of November 13, 2018, were reviewed. LABORATORY DATA: Laboratories of November 13, 2018; white count 14.2, hemoglobin 9.4. Sodium 133, potassium 3, chloride 94, carbon dioxide 28, BUN 50, creatinine 2.23, glucose 128, and calcium 8.7. ASSESSMENT AND PLAN: 1. Acute kidney injury - secondary to prolonged ATN. Creatinine is spontaneously improving. Please note, creatinine is improved from 2.93 to most recent value of 2.23 in the last 2 days. I will continue to hold off dialysis with this patient. She may be having partial renal recovery, where I can discontinue the dialysis. Please note the GFR is noted at 22 mL/minute. 2. Pancreatic cancer, Oncology following. They will have a long discussion regarding long-term plans with this patient. 3. Anemia, stable. Continue to recheck CBC. We will do another basic metabolic in a.m. Job ID: [id number]
[2018-11-13] MEDS: Sodium Chloride 0.9% 1,000 ML IV SCH (11:53)
--- NOTE | 2018-11-13 16:10 | PQF ---
CLINICAL DOCUMENTATION IMPROVEMENT CLARIFICATION FORM: ICD-10 Updated PLEASE DO AN ADDENDUM TO THE PROGRESS NOTE WITH ANY DOCUMENTATION UPDATES OR ADDITIONS AND CARRY THROUGH TO DC SUMMARY. THANK YOU. DATE: 11/13/2018 ATTN: Dr. Garcia Please exercise your independent, professional judgment in responding to the clarification form. Clinical indicators are provided on the bottom of this form for your review Please check appropriate box(s): Syncope Due to: [x ] Dehydration [ x ] Hypotension due to medication [ ] Other diagnosis [ ] Unable to determine In addition, please specify: Present on Admission (POA): [ x] Yes [ ] No [ ] Unable to determine For continuity of documentation, please document condition throughout progress notes and discharge summary. Thank You. CLINICAL INDICATORS - SIGNS / SYMPTOMS / LABS H&P 11/11: She is not eating very much on Sun. started on a new medication which is nifedipine she has been having worsening generalized weakness, lightheadedness, dizziness and nauseated. Presyncope, most likely secondary to possible dehydration. Her orthostatics were definitely positive. PN 11/12: Pre-syncope. Acute RISKS: H&P 11/11: Her orthostatics were definitely positive. She has not been eating or drinking very much per family. Malnutrition. 11/12 ([facility]) recent diagnosis of pancreatic/ovarian carcinoma with metastasis. JESSICA - prolonged ATN. TREATMENT: H&P: I will hold off on any of the BP medications at this time. PN 7/2: will continue to hydrate, Thank you, Batsheva (This form is maintained as a part of the permanent medical record) 2014 [employer], [employer]. All Rights Reserved Batsheva Iverson RN, BSN [email or web address] Office: [phone] [facility]
[2018-11-13] MEDS: HYDROcodone/Acetaminophen 5/325 mg Tablet PO PRN (18:48)
[2018-11-13] MEDS: Famotidine/PF 20 mg/2ml Vial SLOW IVP SCH (21:17)
[2018-11-14] MEDS: HYDROcodone/Acetaminophen 5/325 mg Tablet PO PRN ×2 (00:29→08:34)
[2018-11-14] MEDS: Sodium Chloride 0.9% 1,000 ML IV SCH (03:50)
[2018-11-14 06:13] LABS: #Eosinphils 0.2 thou/uL (0.0-0.7); #Neutrophils 9.9 thou/uL (1.40-6.50); %Basophils 0.3 % (0.0-1.0); %Eosinophils 1.3 % (0.0-10.0); %Lymphocytes 8.6 % (21.0-51.0); %Neutrophils 81.8 % (42.0-75.0); Hemoglobin 9.2 g/dL (12.0-16.0); Mean Corpuscular Hemoglobin 29.9 pg (27.0-31.0); Mean Corpuscular Volume 93.5 fL (78.0-98.0); Mean Platelet Volume 8.7 fL (7.4-10.4); Platelet Count 266 thou/uL (130-400); Red Blood Cell (RBC) Count 3.08 mill/uL (4.20-5.40); White Blood Cell (WBC) Count 12.1 thou/uL (4.8-10.8)
[2018-11-14 06:31] LABS: Anion Gap 16 mmol/L (10-20); BUN (Urea Nitrogen) 45 mg/dL (9.8-20.1); Calc. Creatinine Clearance 42 mL/min (70-130); Calcium 9.3 mg/dL (7.8-10.44); Carbon Dioxide 24 mmol/L (22-29); Chloride 99 mmol/L (98-107); Estimated GFR-MDRD 30; Glucose 109 mg/dL (70-105); Potassium 3.8 mmol/L (3.5-5.1); Sodium 135 mmol/L (136-145)
[2018-11-14] MEDS: Megestrol Acetate 800 MG/20 ML UDCUP PO SCH (08:33)
[2018-11-14] MEDS: Heparin 5,000 UNITS/ML VIAL SC SCH (08:33)
[2018-11-14] MEDS: Multivitamin W/ Minerals 1 TAB PO SCH (08:34)
[2018-11-14] MEDS: Meropenem 500 MG in Sodium Chloride 0.9% 100 ML IVPB SCH (09:10)
--- NOTE | 2018-11-14 10:15 | PRG ---
DATE OF SERVICE: 11/14/2018 SUBJECTIVE: Ms. Smith is a 58-year-old female, who was admitted for hypotension and generalized malaise. She was noted to be very sensitive to her nifedipine, which has been discontinued recently. She is also receiving IV fluid for volume repletion. She has a known history of upper lobe acute kidney injury from her prolonged ATN and currently, was on dialysis. I have held off her dialysis in the last few days since I feel that she may be having some partial recovery of renal function, where I can stop dialysis. She has also known history of pancreatic cancer and plan will be to meet with the oncologist to make long-term decision whether she will receive any form of chemotherapy or consider just hospice. No other complaints today. She is feeling better. No chest pain or shortness of breath. OBJECTIVE: VITAL SIGNS: Blood pressure 139/70, heart rate 86, respiratory rate 16, temperature 98.1, and pulse ox 100%. GENERAL EXAM: Noted to be awake, alert, comfortable, sitting, not in distress. SKIN: Adequate turgor. HEENT: Slightly pale conjunctivae. Anicteric sclerae. NECK: No neck mass. No carotid bruits. No JVD. CHEST: No deformities. LUNGS: Clear breath sounds. No wheezing. No crackles. HEART: Normal sinus rhythm. No murmur. No gallops or rubs. ABDOMEN: Globular, soft, nontender. No masses. EXTREMITIES: No edema. MEDICATIONS: Medications of November 14, 2018, was reviewed. LABORATORY DATA: Laboratories of November 14, 2018; white count 12.1, hemoglobin 9.2. Sodium 135, potassium 3.8, chloride 99, carbon dioxide 24, BUN 45, creatinine 1.71, glucose 109, calcium 9.3. ASSESSMENT AND PLAN: 1. Acute kidney injury secondary to prolonged acute tubular necrosis-I feel that there may be some partial recovery with renal function. Renal function is slowly improving without her dialysis. Most recent creatinine is now 1.71 with a GFR 30 mL/minute. My plan is to discontinue dialysis. If by next week renal function remains acceptable, consider having the cuffed dialysis catheter removed. 2. Pancreatic cancer-the patient to follow up with Oncology next week. 3. Orthostatic hypotension/volume depletion, clinically improving on IV hydration. Blood pressure medication has been discontinued. Overall, I agree with current management. Job ID: [id number]
[2018-11-14 11:49] VITALS: TEMP 97.9
[2018-11-14 12:22] VITALS: BP 133/78
--- NOTE | 2018-11-14 19:19 | DIS ---
DATE OF ADMISSION: 11/11/2018 DATE OF DISCHARGE: 11/14/2018 CHIEF COMPLAINT: Generalized weakness and presyncope. HOSPITAL COURSE: The patient is a 58-year-old female with history of pancreatic cancer with metastatic lesions, who presented to the hospital with complaints of generalized weakness and presyncope. Please look at my H and P for further details. The patient according to the family member had not been eating or drinking very much. Also, was started on new medication, which was Procardia. The patient on rising from the bed or the chair got very, very weak and also to the point that required more assistance than her baseline. The patient was admitted to the hospital, had positive orthostatics. She continued to improve throughout the whole hospital stay. She was provided some fluids. Her blood pressure medication was discontinued. The patient at lying down, her blood pressure was high and sitting up, her blood pressure dropped by more than 20 points and standing up, she dropped significantly. The patient also had a leukocytosis; however, her urine and chest x-ray did not show any acute abnormalities. She did not have any significant pain. She does have a tube for her biliary drainage. The patient at this time was started on antibiotics prophylactically. The patient's family stated that a similar thing happened when she was in [facility], they treated her with antibiotics. However, no source of culture was identified. The patient did have a lower extremity Dopplers, which were negative. She also was seen by Nephrology and did not require any dialysis. The patient's creatinine actually improved and I did speak with Nephrology, and we decided to add the patient on Florinef due to significant lowering of blood pressure upon ambulating. This could be secondary to her underlying disease. She has a followup with her oncologist, Dr. Vasquez. The patient was seen by Physical Therapy. She improved according to PT. The patient has significant support at home. She will be discharged home with a walker. I have encouraged the patient to eat more and she has been doing pretty well and has significant change since her admission. HOME MEDICATIONS: Her home medications will be as of the followin. Multivitamin one p.o. daily. 2. Megestrol 40 mg daily. 3. Protonix 20 mg daily. 4. Augmentin 1 p.o. b.i.d. 5. Florinef 0.1 mg daily. 6. Florastor 250 mg daily. 7. Tylenol No. 3 one p.o. q.6 hours p.r.n. 8. Norvasc 10 mg as needed if her blood pressure is greater than 170. DISCHARGE DIAGNOSES: As of the followin. Presyncope, most likely secondary to orthostatic hypotension. 2. Generalized weakness. 3. Pancreatic cancer. 4. Chronic kidney disease, stage 4. PHYSICAL EXAMINATION: VITAL SIGNS: Temperature 97.9, pulse 86, respirations 16, respirations 100% on room air, and blood pressure lying down was 156/72, sitting was 133/78 and standing up was 111/77. GENERAL: The patient is awake, alert, and oriented x3. Does not appear in distress. CV: S1 and S2 present. No murmurs, rubs, or gallops. ABDOMEN: Soft and nontender. Bowel sounds are present x2. DISCHARGE INSTRUCTIONS: Again, she was instructed that if she does take her blood pressure medications and if her blood pressure is greater than 170 systolic to get up very slowly since this can cause significant lowering of the blood pressure on arising. Job ID: [id number]
== END 2018-11-14 16:51 | disposition home or self-care (01) | DRG 640 ==
LOC: ERS 13:19 → 2NO 21:00
PROVIDERS: ADMIT Internal Medicine; ATTEND Internal Medicine
DX: E86.0 Dehydration (principal); N17.0 Acute kidney failure with tubular necrosis; C25.9 Malignant neoplasm of pancreas, unspecified; C79.60 Secondary malignant neoplasm of unspecified ovary; E44.0 Moderate protein-calorie malnutrition; N18.4 Chronic kidney disease, stage 4 (severe); I95.2 Hypotension due to drugs; T46.1X5A Adverse effect of calcium-channel blockers, initial encounter; D72.829 Elevated white blood cell count, unspecified; I12.9 Hypertensive chronic kidney disease with stage 1 through stage 4 chronic kidney disease, or unspecified chronic kidney disease; D63.1 Anemia in chronic kidney disease; Z68.26 Body mass index [BMI] 26.0-26.9, adult; Z90.49 Acquired absence of other specified parts of digestive tract; Z79.899 Other long term (current) drug therapy
CPT/HCPCS: 36415; 71045; 80048; 80053; 81001; 84484; 85025; 87040; 87086; 90471; 90670; 93005; 93970; 96360; 96361; G0009; J1644; J2185; J3490; S0028

== ENCOUNTER 2018-12-03 17:46 | Inpatient (IN) | payer BC ==
[2018-12-03 19:05] LABS: ALT (SGPT) 23 U/L (8-55); AST (SGOT) 33 U/L (5-34); Albumin 4.2 g/dL (3.5-5.0); Alkaline Phosphatase 267 U/L (40-150); Anion Gap 27 mmol/L (10-20); BUN (Urea Nitrogen) 93 mg/dL (9.8-20.1); Bilirubin, Total 1.1 mg/dL (0.2-1.2); Calc. Creatinine Clearance 0 mL/min (70-130); Calcium 10.6 mg/dL (7.8-10.44); Carbon Dioxide 13 mmol/L (22-29); Chloride 81 mmol/L (98-107); Estimated GFR-MDRD 15; Globulin 5.2 g/dL (2.4-3.5); Glucose 152 mg/dL (70-105); Potassium 4.7 mmol/L (3.5-5.1); Protein, Total 9.4 g/dL (6.0-8.3)
[2018-12-03 19:11] LABS: Sodium 116 mmol/L (136-145)
[2018-12-03 19:50] LABS: #Eosinphils 0.1 thou/uL (0.0-0.7); #Lymphocytes 1.3 thou/uL (1.20-3.40); #Neutrophils 12.5 thou/uL (1.40-6.50); %Basophils 0.2 % (0.0-1.0); %Eosinophils 0.6 % (0.0-10.0); %Lymphocytes 8.7 % (21.0-51.0); %Monocytes 6.4 % (0.0-10.0); Hemoglobin 12.5 g/dL (12.0-16.0); Mean Corpuscular HGB CONC 32.1 g/dL (32.0-36.0); Mean Corpuscular Hemoglobin 27.8 pg (27.0-31.0); Mean Corpuscular Volume 86.5 fL (78.0-98.0); Mean Platelet Volume 8.2 fL (7.4-10.4); Platelet Count 385 thou/uL (130-400); RBC Distribution Width 14.6 % (11.5-14.5); Red Blood Cell (RBC) Count 4.48 mill/uL (4.20-5.40); White Blood Cell (WBC) Count 14.9 thou/uL (4.8-10.8)
[2018-12-03] MEDS ORDERED: Morphine 4 MG/ML VIAL ONE (19:50)
[2018-12-03 20:52] LABS: CKMB 4.1 ng/mL (0-6.6)
[2018-12-03] MEDS ORDERED: Enoxaparin Sodium 40 MG/0.4 ML SYRINGE ONE (21:19)
[2018-12-03] MEDS ORDERED: Enoxaparin Sodium 30 MG/0.3 ML SYRINGE ONE (21:19)
[2018-12-03] MEDS ORDERED: Aspirin Chewable 81 MG TAB ONE (21:19)
[2018-12-03 22:02] LABS: Troponin I 0.086 ng/mL (< 0.028)
[2018-12-04 00:37] VITALS: BMI 25.1
[2018-12-04 00:53] LABS: Troponin I 0.102 ng/mL (< 0.028)
[2018-12-04] MEDS ORDERED: Sodium Chloride 0.9% 1,000 ML IV SCH (06:00)
[2018-12-04] MEDS ORDERED: Zolpidem Tartrate 5 MG TAB PO PRN (07:40)
[2018-12-04] MEDS ORDERED: Acetaminophen 325 MG TAB PO PRN (07:40)
[2018-12-04] MEDS ORDERED: Ondansetron ODT 4 MG TAB PO PRN (07:40)
[2018-12-04] MEDS: Megestrol Acetate 800 MG/20 ML UDCUP PO SCH (08:32)
[2018-12-04] MEDS: Multivit, Therapeutic 1 TAB PO SCH (08:32)
[2018-12-04] MEDS: Sodium Chloride 0.9% 1,000 ML IV SCH ×2 (08:32→15:26)
[2018-12-04] MEDS: HYDROcodone/Acetaminophen 5/325 mg Tablet PO PRN ×2 (09:10→20:06)
[2018-12-04 12:52] LABS: Anion Gap 17 mmol/L (10-20); BUN (Urea Nitrogen) 86 mg/dL (9.8-20.1); Calc. Creatinine Clearance 24 mL/min (70-130); Calcium 9.8 mg/dL (7.8-10.44); Carbon Dioxide 19 mmol/L (22-29); Chloride 90 mmol/L (98-107); Estimated GFR-MDRD 17; Glucose 125 mg/dL (70-105); Potassium 3.9 mmol/L (3.5-5.1); Sodium 122 mmol/L (136-145)
--- NOTE | 2018-12-04 15:25 | CON ---
DATE OF CONSULTATION: REASON FOR CONSULT: Adenocarcinoma. HISTORY OF PRESENT ILLNESS: Ms. Smith is a 58-year-old female, who in September of 2018, presented with jaundice. She had a left ovarian mass and a bilirubin of 3.8, a laparoscopic biopsy and drainage of ascitic fluid showed adenocarcinoma, possibly pancreatobiliary primary. She underwent an ERCP and EUS in October of 2018. It required a prolonged hospitalization and she eventually had a percutaneous drain placed. She had ended up developing sepsis and renal failure and was started on dialysis. She has not required dialysis since 11/08. She saw Dr. Vasquez on December 02. She continued to have right upper quadrant pain and weakness. She was still having extremely poor appetite. In discussion with Dr. Vasquez, chemotherapy was her only treatment option. She did not want to undergo chemotherapy or palliative chemotherapy and was considering hospice. Lab from the visit on 12/02 showed a sodium of 119 down from 138 few weeks prior. Her creatinine was elevated at 2.75. Bilirubin was normal at 1.2. She was sent to the ER for hyponatremia and admitted for dehydration. She is currently receiving IV fluids. She denies any pain at this time. PAST MEDICAL AND SURGICAL HISTORY: 1. Newly diagnosed pancreatic biliary adenocarcinoma. 2. Hyperbilirubinemia status post percutaneous drain placement. 3. Dialysis catheter placement. 4. Cholecystectomy. 5. section. ALLERGIES: NO KNOWN DRUG ALLERGIES. HOME MEDICATIONS: 1. Hydrocodone. 2. Megestrol. 3. Magnesium. 4. Protonix. FAMILY HISTORY: Noncontributory. SOCIAL HISTORY: , has 2 children. Lives with her spouse. No alcohol, tobacco, or illicit drug use. REVIEW OF SYSTEMS: Negative except for noted in HPI. PHYSICAL EXAMINATION: VITAL SIGNS: Temperature is 97.9, pulse is 85, respiratory rate 18, and BP is 139/73. She is 100% on room air. GENERAL: Chronically ill-appearing female with mild jaundice. HEENT: Normocephalic and atraumatic. Pupils are equal and reactive to light. NECK: Supple. CV: Regular rate and rhythm. LUNGS: Clear. ABDOMEN: Soft and nontender. She has percutaneous biliary drain with green bile. EXTREMITIES: No clubbing, cyanosis, or edema. SKIN: No rash. HEMATOLOGIC: No petechiae or purpura. NEUROLOGIC: Nonfocal. PERTINENT LABS AND X-RAYS: Current WBCs are 14.9, hemoglobin 12.5, hematocrit 38.8, platelet count is 385,000, 84% neutrophils, and 8% lymphocytes. Sodium is 116, potassium is 4.7, chloride is 81, CO2 is 13, BUN is 93, creatinine is 3.07, calcium is 10.6, bilirubin is 1.1, AST is 33, ALT is 23, and alkaline phosphatase is 267. Troponin is 0.102. Serum total protein is 9.4, albumin is 4.2, globulin is 5.2, and lipase is 18. ASSESSMENT: 1. Metastatic pancreatobiliary adenocarcinoma. 2. Hyponatremia. DISCUSSION: The patient has agreed to hospice care. She would like to go home on hospice. I will consult [facility] for their assistance in setup prior to discharge. We will continue treating her hyponatremia and acute kidney injury. Once this is improved, she can be discharged home with hospice. I did speak to the , the patient, and daughter, all in agreement. Case has been discussed with Dr. Vasquez. We will also have Palliative Care see her to discuss power of associate attorney and advanced directives. Thank you for the consult. Job ID: [id number]
--- NOTE | 2018-12-04 18:10 | HP ---
PRIMARY CARE PROVIDER: Dr. Ricco Hardy. ONCOLOGIST: Dr. Oriana Vasquez. HISTORY OF PRESENT ILLNESS: The patient was referred to [facility] by [facility] for hyponatremia. She presented to the emergency room having been to the laboratory and told that her serum sodium was dangerously low. She was seen in the emergency room. Serum sodium was 116. She has had no therapy for her pancreatic cancer since her last admission. She has weakness. No chest pain. No nausea. She does have difficulty with bowel movements and requires digital removal. She has poor solid intake and minimal fluid intake. PAST MEDICAL HISTORY: Pertinent for pancreatic cancer. She has originally seen Dr. Garland in [place]. The patient was jaundiced. She eventually had a cholecystostomy and actually also had a hemodialysis catheter placed in her left subclavian area. Both are still in. She has been on hemodialysis in the past for her renal failure. She also has hypertension. CURRENT MEDICATIONS: 1. Protonix 20 mg a day. 2. Hydrocodone 5/325 one or two tablets every 6 hours p.r.n. 3. Megestrol 400 mg a day. 4. Norvasc 10 mg a day. ALLERGIES: NO ALLERGIES. PAST SURGICAL HISTORY: Cholecystostomy this year, hemodialysis catheter in the left subclavian this year. She has had a . FAMILY HISTORY: For heart disease and stroke. SOCIAL HISTORY: Denies alcohol, drug use, or smoking. She is full code. Lives with her , who is at bedside. REVIEW OF SYSTEMS: CONSTITUTIONAL: No fevers, sweats, chills, headaches, or dizziness. EYES: No double vision, blurred vision, or flashing of light. EAR, NOSE, AND THROAT: No ear pain or drainage. No nasal bleeding. No trouble swallowing. CARDIAC: No chest pain, orthopnea, or paroxysmal nocturnal dyspnea. RESPIRATION: No cough, wheezing, or asthma. GASTROINTESTINAL: No nausea, vomiting, abdominal pain, or diarrhea. GENITOURINARY: No hematuria or dysuria. MUSCULOSKELETAL: No pain or swelling in her arms or legs. PSYCHIATRIC: No anxiety or depression. NEUROLOGICAL: No strokes, seizures, or focal weakness. SKIN: No bruising, bleeding, or rash. HEME/LYMPH: No tender or swollen lymph nodes in axilla, inguinal, or cervical area. PHYSICAL EXAMINATION: GENERAL: She is alert, mainly Mohawk-speaking lady, the history obtained through her . VITAL SIGNS: Temperature 97.6, pulse 88, respirations 19, O2 saturation 99 on room air, and blood pressure 130/70. HEAD, EYES, EARS, NOSE, AND THROAT: Revealed pupils equal and round. Extraocular movements are intact. Sclerae are white. Tympanic membranes are clear. Nose is clear. Oral mucous membranes are dry. NECK: No jugular venous distention, adenopathy, or thyromegaly. CHEST: Clear to auscultation and percussion. HEART: Regular rate and rhythm. First and second heart sounds are clear. No murmurs or gallops. ABDOMEN: Soft. Bowel sounds are present. There is no palpable mass. No bruit. No hepatosplenomegaly was appreciated. EXTREMITIES: No cyanosis, clubbing, or edema. PULSES: Carotid, radial, femoral, and dorsalis pedis pulses are intact and symmetric. SKIN: Warm and dry without bruises or rash. HEME/LYMPH: No tender or swollen lymph nodes in axilla, inguinal, or cervical area. NEUROLOGICAL: Cranial nerves 2 through 12 are intact. Moves all extremities. STUDIES: No radiological studies were done. No EKG was done. LABORATORY DATA: Laboratory revealed a sodium 116, potassium 4.7, chloride 81, CO2 of 13, BUN 93, creatinine 3.07, blood sugar 152, calcium 10.6, alkaline phosphatase 267. Cardiac enzymes were elevated at 0.1, 0.09, and 0.1. White count 14.9, hemoglobin 12.5, and platelet count 385,000. ADMITTING DIAGNOSES: 1. Hyponatremia. 2. Acute on chronic renal failure. 3. Hypertension. 4. Pancreatic cancer. PLAN: IV fluids, normal saline at 75 mL an hour. Serial basic metabolic profile. Selected home medicines. Consult Dr. Vasquez. Consult Dr. Mtz. Prognosis for this lady is very poor. We will discuss palliative care with hospice with Dr. Vasquez or her SPORTS TEACHER, Mikala Galarza. This lady's prognosis is very very poor. Job ID: [id number] MTDD
[2018-12-04 18:19] LABS: Anion Gap 20 mmol/L (10-20); BUN (Urea Nitrogen) 84 mg/dL (9.8-20.1); Calc. Creatinine Clearance 24 mL/min (70-130); Calcium 9.4 mg/dL (7.8-10.44); Carbon Dioxide 15 mmol/L (22-29); Chloride 91 mmol/L (98-107); Estimated GFR-MDRD 17; Glucose 162 mg/dL (70-105); Potassium 3.5 mmol/L (3.5-5.1); Sodium 122 mmol/L (136-145)
[2018-12-04] MEDS ORDERED: Polyethylene Glycol 3350 17 GM Packet PO PRN (21:31)
[2018-12-05 00:21] LABS: Anion Gap 17 mmol/L (10-20); BUN (Urea Nitrogen) 79 mg/dL (9.8-20.1); Calc. Creatinine Clearance 26 mL/min (70-130); Calcium 9.2 mg/dL (7.8-10.44); Carbon Dioxide 18 mmol/L (22-29); Chloride 92 mmol/L (98-107); Estimated GFR-MDRD 19; Glucose 119 mg/dL (70-105); Potassium 3.6 mmol/L (3.5-5.1); Sodium 123 mmol/L (136-145)
--- NOTE | 2018-12-05 00:48 | CON ---
DATE OF CONSULTATION: HISTORY OF PRESENT ILLNESS: Ms. Smith is a 58-year-old white female who has a diagnosis of left ovarian mass, pancreatic biliary adenocarcinoma, status post acute kidney injury, and now admitted for generalized malaise and worsening renal dysfunction. The patient's renal function has been improving. Please note, she had a prolonged ATN. However, in the last few days, she has been having nausea and decreased p.o. intake. She was noted to be volume depleted and the renal function has worsened. She is currently receiving IV volume repletion. We are now being consulted for this acute kidney injury on top of her chronic renal failure. REVIEW OF SYSTEMS: Positive for nausea, decreased appetite, decreased energy level. No diarrhea. No constipation. Positive for abdominal fullness. No diarrhea. No fever or chills. No headache. No syncopal episode. Energy level is decreased. Occasional joint pains. No shortness of breath. MEDICATIONS: Currently on, 1. Hydrocodone one tab q.4 p.r.n. 2. Megestrol daily. 3. Multivitamin daily. 4. Normal saline at 75 mL/hour. 5. Zofran 4 mg q.6 p.r.n. PAST MEDICAL HISTORY: 1. The patient has history of acute renal failure secondary to prolonged ATN-status post hemodialysis. 2. History of biliary pancreatic cancer. 3. History of ovarian mass. 4. History of jaundice. 5. Hypertension. 6. Status post GI bleed. PAST SURGICAL HISTORY: Status post cuffed dialysis catheter placement, status post upper GI endoscopy, status post exploratory laparotomy, status post biliary stent placement, status post biopsy of ovarian mass, status post bilateral stent placement, status post MediPort placement. SOCIAL HISTORY: The patient lives in [place]. Used to work at [employer]. with 2 children. No alcohol intake. No IV drug abuse. Status post blood transfusion. Education, high school. ALLERGIES: NO KNOWN DRUG ALLERGIES. TRAUMA: None. IMMUNIZATION: Up-to-date. HOSPITALIZATIONS: Please see past medical history. FAMILY HISTORY: No family history of ESRD. PHYSICAL EXAMINATION: VITAL SIGNS: Blood pressure is noted at 140/75, heart rate 80, respiratory rate 18, temperature 97.9, and pulse ox 100%. GENERAL: Noted to be awake, alert, comfortable, not in overt distress. Mildly icteric sclerae. LUNGS: Clear breath sounds. No wheezing. No crackles. HEART: Normal sinus rhythm. No murmur. No gallops. No rubs. ABDOMEN: Globular, soft, nontender. No masses. EXTREMITIES: Trace edema. No deformities. LABORATORY DATA: Laboratories on December 04, 2018, sodium 122, potassium 3.9, chloride 90, carbon dioxide 19, BUN 8, creatinine 2.8, GFR 17 mL/minute, calcium 9.8. December 03, 2018, BUN was 93, creatinine 3.07. December 02, 2018, BUN 85, creatinine 2.75. ASSESSMENT AND PLAN: 1. Acute kidney injury consider hemodynamically-mediated renal dysfunction. Agree with current IV volume repletion. No indication for any dialytic intervention. 2. Hyponatremia, consider hypovolemic hyponatremia. Serum sodium is much improved from 116 to a most recent value of 122 with volume depletion. 3. Pancreatobiliary carcinoma-the patient is considering hospice. Oncology has been consulted. 4. Overall, agree with current management. Job ID: [id number]
[2018-12-05] MEDS: HYDROcodone/Acetaminophen 5/325 mg Tablet PO PRN ×4 (02:25→21:04)
[2018-12-05] MEDS: Sodium Chloride 0.9% 1,000 ML IV SCH (05:07)
[2018-12-05 05:59] LABS: Anisocytosis SLIGHT = 6-15 cells (100X) (0-5/hpf); Band 6 % (5-11); Hemoglobin 11.8 g/dL (12.0-16.0); Lymphocytes 4 % (21-51); MDiff Complete? YES; Mean Corpuscular HGB CONC 30.4 g/dL (32.0-36.0); Mean Corpuscular Hemoglobin 26.8 pg (27.0-31.0); Mean Corpuscular Volume 88.2 fL (78.0-98.0); Mean Platelet Volume 7.9 fL (7.4-10.4); Monocytes 8 % (0-10); Neutrophil 82 % (42-75); Platelet Count 289 thou/uL (130-400); RBC Distribution Width 14.6 % (11.5-14.5); Red Blood Cell (RBC) Count 4.41 mill/uL (4.20-5.40); White Blood Cell (WBC) Count 10.4 thou/uL (4.8-10.8)
[2018-12-05] MEDS: Megestrol Acetate 800 MG/20 ML UDCUP PO SCH (08:19)
[2018-12-05] MEDS: Multivit, Therapeutic 1 TAB PO SCH (08:19)
--- NOTE | 2018-12-05 09:05 | PRG ---
DATE OF SERVICE: 12/05/2018 SUBJECTIVE: Ms. Smith is a 58-year-old white female, who was seen by the Renal Service for her acute kidney injury on top of her chronic renal failure. At one time, she had a prolonged ATN, was temporally placed on dialysis. However, with spontaneous improved renal function, we have discontinued her dialysis. She has a known history of pancreatic biliary adenocarcinoma. Tentatively, the patient and the family has agreed to hospice. They have some more questions regarding hospice. They did ask me if they can bring her back for hospitalization if needed. I told them they can break the hospice agreement. However, I suggested that they re-discuss this questions with the Hospice Service. Please note, the patient is feeling better after IV hydration. She is still feeling a little bit tired and lethargic. OBJECTIVE: VITAL SIGNS: Blood pressure 125/74, heart rate 93, respiratory rate 18, temperature 97.6, and pulse ox 100% on room air. GENERAL: Awake, comfortable, somewhat lethargic, not in distress. SKIN: Adequate turgor. HEENT: Pinkish conjunctivae. Anicteric sclerae. NECK: No neck mass. No carotid bruits. No JVD. CHEST: No deformities. LUNGS: Clear breath sounds. HEART: Normal sinus rhythm. No murmurs. No gallops. No rubs. ABDOMEN: Globular, soft, and nontender. No masses. Positive for ascites. EXTREMITIES: No edema. MEDICATIONS: Medications of December 05, 2018, reviewed. LABORATORY DATA: Laboratories of December 05, 2018, white count 10.4 and hemoglobin 11.8. Sodium 123, potassium 3.6, chloride 92, carbon dioxide 18, BUN 79, and creatinine 2.57. ASSESSMENT AND PLAN: 1. Acute kidney injury on top of her chronic renal failure, improving renal function with IV hydration. No indication for any dialytic intervention. 2. Hyponatremia - most likely a superimposed hypovolemic hyponatremia. Serum sodium has not gone back to normal. The possibility of underlying syndrome of inappropriate antidiuretic hormone secretion remains with this patient, if she does not completely improve with volume repletion. 3. Pancreatobiliary cancer - supportive care. In principal, the family has agreed for hospice care. They do have some questions regarding hospice care and for that reason, I referred them back to get in touch with hospice. Overall, agree with current management. Job ID: [id number]
--- NOTE | 2018-12-05 09:43 | PDOC.HOSPP ---
- Subjective Subjective: stronger, trouble having BM - Objective Vital Signs & Weight: Vital Signs (12 hours) Temp Pulse Resp BP Pulse Ox 12/05/18 07:01 97.6 F 93 18 125/74 100 12/05/18 03:12 98 F 92 17 128/75 100 Weight Admit Weight 155 lb 11.2 oz Weight 155 lb 11.2 oz I&O: 12/04/18 12/05/18 12/06/18 06:59 06:59 06:59 Intake Total 2540 Output Total 100 Balance 2440 Result Diagrams: 12/05/18 05:13 12/04/18 23:57 ROS - Review of Systems All systems: All other ROS were reviewed and found negative. - Medication Medications: Active Medications Generic Name Dose Route Start Last Admin Trade Name Freq PRN Reason Stop Dose Admin Hydrocodone Bitart/Acetaminophen 1 tab 12/04/18 07:40 12/05/18 08:19 Gilliam 5/325 PO 1 tab Q4H PRN Administration Moderate Pain (4-6) Sodium Chloride 1,000 mls @ 75 mls/hr 12/04/18 07:45 12/05/18 05:07 Normal Saline 0.9% IV 1,000 mls .[id number] CHASITY Administration Megestrol Acetate 400 mg 12/04/18 09:00 12/05/18 08:19 Megace PO 400 mg DAILY CHASITY Administration Multivitamins 1 tab 12/04/18 09:00 12/05/18 08:19 Theragran PO 1 tab DAILY CHASITY Administration Pantoprazole Sodium 20 mg 12/04/18 09:00 12/05/18 08:19 Protonix PO 20 mg DAILY CHASITY Administration Polyethylene Glycol 17 gm 12/04/18 21:31 12/04/18 22:50 Miralax PO 17 gm DAILYPRN PRN Administration Constipation Zolpidem Tartrate 5 mg 12/04/18 07:40 12/05/18 02:55 Ambien PO 5 mg HSPRN PRN Administration Insomnia - Exam Neck: no JVD Heart: RRR, no murmur Respiratory: CTAB Gastrointestinal: soft, normal bowel sounds Extremities: no edema Hosp A/P (1) Hyponatremia Code(s): E87.1 - HYPO-OSMOLALITY AND HYPONATREMIA Status: Acute (2) HTN (hypertension) Code(s): I10 - ESSENTIAL (PRIMARY) HYPERTENSION Status: Acute (3) CKD (chronic kidney disease) stage 4, GFR 15-29 ml/min Code(s): N18.4 - CHRONIC KIDNEY DISEASE, STAGE 4 (SEVERE) Status: Acute (4) Generalized weakness Code(s): R53.1 - WEAKNESS Status: Acute (5) Pancreatic cancer Status: Acute - Plan cont iv saline. fleets enema. DC target is adequately improved serum Na
[2018-12-05] MEDS ORDERED: Fleet Enema 133 ML BOT PR SCH (09:45)
[2018-12-05 13:44] LABS: Anion Gap 17 mmol/L (10-20); BUN (Urea Nitrogen) 73 mg/dL (9.8-20.1); Calc. Creatinine Clearance 27 mL/min (70-130); Calcium 9.6 mg/dL (7.8-10.44); Carbon Dioxide 17 mmol/L (22-29); Chloride 93 mmol/L (98-107); Estimated GFR-MDRD 20; Glucose 134 mg/dL (70-105); Potassium 3.7 mmol/L (3.5-5.1); Sodium 123 mmol/L (136-145)
[2018-12-06] MEDS: Sodium Chloride 0.9% 1,000 ML IV SCH ×2 (00:08→12:12)
[2018-12-06] MEDS: HYDROcodone/Acetaminophen 5/325 mg Tablet PO PRN ×3 (01:00→14:00)
[2018-12-06 06:27] LABS: #Eosinphils 0.1 thou/uL (0.0-0.7); #Lymphocytes 0.9 thou/uL (1.20-3.40); #Monocytes 0.8 thou/uL (0.11-0.59); #Neutrophils 8.3 thou/uL (1.40-6.50); %Basophils 0.2 % (0.0-1.0); %Eosinophils 1.4 % (0.0-10.0); %Lymphocytes 8.6 % (21.0-51.0); %Monocytes 7.8 % (0.0-10.0); %Neutrophils 82.1 % (42.0-75.0); Hemoglobin 10.7 g/dL (12.0-16.0); Mean Corpuscular HGB CONC 33.1 g/dL (32.0-36.0); Mean Corpuscular Hemoglobin 28.6 pg (27.0-31.0); Mean Corpuscular Volume 86.6 fL (78.0-98.0); Mean Platelet Volume 7.6 fL (7.4-10.4); Platelet Count 313 thou/uL (130-400); RBC Distribution Width 14.6 % (11.5-14.5); Red Blood Cell (RBC) Count 3.73 mill/uL (4.20-5.40); White Blood Cell (WBC) Count 10.1 thou/uL (4.8-10.8)
[2018-12-06 06:52] LABS: Anion Gap 17 mmol/L (10-20); BUN (Urea Nitrogen) 65 mg/dL (9.8-20.1); Calc. Creatinine Clearance 31 mL/min (70-130); Calcium 9.3 mg/dL (7.8-10.44); Carbon Dioxide 16 mmol/L (22-29); Chloride 97 mmol/L (98-107); Estimated GFR-MDRD 23; Glucose 116 mg/dL (70-105); Potassium 3.4 mmol/L (3.5-5.1); Sodium 127 mmol/L (136-145)
[2018-12-06 07:39] VITALS: BP 119/82; TEMP 98
[2018-12-06] MEDS: Multivit, Therapeutic 1 TAB PO SCH (07:56)
[2018-12-06] MEDS: Megestrol Acetate 800 MG/20 ML UDCUP PO SCH (07:57)
== END 2018-12-06 15:19 | disposition home or self-care (01) | DRG 683 ==
LOC: ERS 17:46 → 2NO 21:40 → T4-A 12-05 18:24
PROVIDERS: ADMIT Hospitalist; ATTEND Hospitalist
DX: N17.9 Acute kidney failure, unspecified (principal); E87.1 Hypo-osmolality and hyponatremia; C25.9 Malignant neoplasm of pancreas, unspecified; N18.4 Chronic kidney disease, stage 4 (severe); E86.0 Dehydration; I12.9 Hypertensive chronic kidney disease with stage 1 through stage 4 chronic kidney disease, or unspecified chronic kidney disease; Z79.899 Other long term (current) drug therapy; Z90.49 Acquired absence of other specified parts of digestive tract
CPT/HCPCS: 36415; 80048; 80053; 82550; 82553; 83690; 84484; 85025; 86301; 93005; 94760; 96361; 96372; 96374; J1650; J2270